=== PATIENT | female | born 1940 | race Caucasian/White ===

== ENCOUNTER 2021-08-20 14:35 | Emergency (ER) | payer MEDICARE, BC | END 2021-08-20 16:38 | disposition home or self-care (01) | LOC: MADERS 14:35 | DX: S60.222A Contusion of left hand, initial encounter (principal); S80.11XA Contusion of right lower leg, initial encounter; S05.11XA Contusion of eyeball and orbital tissues, right eye, initial encounter; R47.01 Aphasia; I10 Essential (primary) hypertension; E03.9 Hypothyroidism, unspecified; Z79.899 Other long term (current) drug therapy; W22.8XXA Striking against or struck by other objects, initial encounter; Y92.129 Unspecified place in nursing home as the place of occurrence of the external cause ==

== ENCOUNTER 2021-10-20 13:24 | Emergency (ER) | payer MEDICARE, BC | END 2021-10-20 14:52 | LOC: MADERS 13:24 | DX: S40.021A Contusion of right upper arm, initial encounter (principal); S42.294A Other nondisplaced fracture of upper end of right humerus, initial encounter for closed fracture; I10 Essential (primary) hypertension; E78.5 Hyperlipidemia, unspecified; E03.9 Hypothyroidism, unspecified; W19.XXXA Unspecified fall, initial encounter | CPT/HCPCS: 23600; 71045 ==

== ENCOUNTER 2022-01-04 10:23 | Outpatient (CLI) | payer MEDICARE, BC | END 2022-01-04 10:24 | disposition home or self-care (01) | LOC: MADLAB 10:23 | PROVIDERS: ATTEND Family Medicine | DX: E03.9 Hypothyroidism, unspecified (principal) | CPT/HCPCS: 84443 ==

== ENCOUNTER → 2022-01-21 | Emergency (ER) | payer MEDICARE, BC ==
[~2022-01-21] MED LIST: Boostrix 0.5 ML (Tdap) VIAL ONE; HYDROcodone/Acetaminophen 5/325 mg Tablet ONE
[2022-01-21 18:30] LABS: #Basophils 0.1 thou/uL (0.0-0.2); #Eosinphils 0.1 thou/uL (0.0-0.7); #Lymphocytes 1.1 thou/uL (1.20-3.40); #Monocytes 1.5 thou/uL (0.11-0.59); %Basophils 0.5 % (0.0-1.0); %Eosinophils 0.4 % (0.0-10.0); %Lymphocytes 6.8 % (21.0-51.0); %Monocytes 9.6 % (0.0-10.0); %Neutrophils 82.6 % (42.0-75.0); Mean Corpuscular HGB CONC 31.5 g/dL (32.0-36.0); Mean Corpuscular Hemoglobin 27.6 pg (27.0-31.0); Mean Corpuscular Volume 87.7 fL (78.0-98.0); Mean Platelet Volume 5.8 fL (7.4-10.4); Platelet Count 349 thou/uL (130-400); RBC Distribution Width 12.5 % (11.5-14.5); Red Blood Cell (RBC) Count 5.08 mill/uL (4.20-5.40); White Blood Cell (WBC) Count 15.7 thou/uL (4.8-10.8)
[2022-01-21 18:40] LABS: ALT (SGPT) 10 U/L (8-55); AST (SGOT) 32 U/L (5-34); Albumin 3.8 g/dL (3.4-4.8); Alkaline Phosphatase 115 U/L (40-110); Anion Gap 17 mmol/L (10-20); BUN (Urea Nitrogen) 18 mg/dL (9.8-20.1); Bilirubin, Total 0.3 mg/dL (0.2-1.2); Calc. Creatinine Clearance 0 mL/min (70-130); Calcium 9.9 mg/dL (7.8-10.44); Carbon Dioxide 23 mmol/L (23-31); Chloride 106 mmol/L (98-107); Globulin 3.2 g/dL (2.4-3.5); Glucose 110 mg/dL (83-110); Potassium 4.4 mmol/L (3.5-5.1); Sodium 142 mmol/L (136-145)
== END ==
LOC: MADERS 15:12
DX: S32.011A Stable burst fracture of first lumbar vertebra, initial encounter for closed fracture (principal); S22.019A Unspecified fracture of first thoracic vertebra, initial encounter for closed fracture; S22.029A Unspecified fracture of second thoracic vertebra, initial encounter for closed fracture; S01.01XA Laceration without foreign body of scalp, initial encounter; G20 Parkinson's disease; F02.80 Dementia in other diseases classified elsewhere, unspecified severity, without behavioral disturbance, psychotic disturbance, mood disturbance, and anxiety; I10 Essential (primary) hypertension; E03.9 Hypothyroidism, unspecified; Z85.3 Personal history of malignant neoplasm of breast; Z79.899 Other long term (current) drug therapy; W18.30XA Fall on same level, unspecified, initial encounter; Y92.129 Unspecified place in nursing home as the place of occurrence of the external cause
CPT/HCPCS: 12001; 36415; 70450; 72125; 72128; 72131; 80053; 85025; 90715

== ENCOUNTER 2022-01-29 11:49 | Outpatient (CLI) | payer MEDICARE, BC | END 2022-01-29 11:50 | disposition home or self-care (01) | LOC: MADLAB 11:49 | PROVIDERS: ATTEND Family Medicine | DX: E03.9 Hypothyroidism, unspecified (principal) | CPT/HCPCS: 84443 ==